=== PATIENT | female | born 1955 | race Caucasian/White ===

== ENCOUNTER 2017-09-24 20:34 | Emergency (ER) | payer MEDICARE, OTHER ==
[2017-09-24] MEDS: SODIUM CHLORIDE 0.9% FLUSH 10 ML SOL IV PRN ×2 (20:45→21:37)
[2017-09-24] MEDS ORDERED: ASPIRIN 81 MG CHEWABLE CTB ONE (20:50)
[2017-09-24] MEDS ORDERED: ASPIRIN 81 MG CHEWABLE CTB PO ONE (21:00)
[2017-09-24 21:04] LABS: HEMATOCRIT 44 % (35-47); HEMOGLOBIN 15.5 gm/dl (12.0-15.5); MEAN CORPUSCULAR HEMOGLOBIN 32.7 pg (27.0-32.0); MEAN CORPUSCULAR HGB CONC 35.6 gm/dl (32.0-36.0); MEAN CORPUSCULAR VOLUME 92 fL (81-99)
[2017-09-24 21:05] LABS: INR 1.05 (0.86-1.12)
[2017-09-24 21:10] LABS: BLOOD UREA NITROGEN 7 mg/dl (7-18); CALCIUM 8.9 mg/dl (8.5-10.1); CARBON DIOXIDE 24.1 mEq/L (21-32); CHLORIDE 97 mMol/L (98-107); CREATINE KINASE 81 U/L (26-192); CREATININE 0.92 mg/dl (0.60-1.00); GLOM FILT RATE 62 mL/min (>60); GLUCOSE 109 mg/dl (74-106); POTASSIUM 3.6 mMol/L (3.5-5.1); SODIUM 132 mMol/L (136-145); TROP I < 0.017 ng/ml (0.000-0.056)
[2017-09-24 21:15] LABS: BAND NEUTROPHILS % (MANUAL) 3 %; BASOPHILS % (MANUAL) 0 % (0-3); EOSINOPHILS % (MANUAL) 2 % (0-9); LYMPHOCYTES % (MANUAL) 25 % (10-50); MONOCYTES % (MANUAL) 12 % (0-12); NEUTROPHILS % (MANUAL) 58 % (37-80)
[2017-09-24 21:16] LABS: NORMAL RBCS PRESENT
[2017-09-24 21:21] VITALS: RESP 24
[2017-09-24] MEDS ORDERED: SOLUMEDROL 125 MG/2 ML 125 MG/2 ML PDS IV ONE (21:29)
[2017-09-24] MEDS ORDERED: KETOROLAC TROMETHAMINE 30 MG/ML SOL IV ONE (21:30)
[2017-09-24] MEDS ORDERED: KETOROLAC TROMETHAMINE 30 MG/ML SOL ONE (21:31)
[2017-09-24] MEDS ORDERED: SOLUMEDROL 125 MG/2 ML 125 MG/2 ML PDS ONE (21:31)
[2017-09-24 21:46] VITALS: BP 142/99; PULSE 75; TEMP 99.1; O2SAT 95
== END 2017-09-24 21:59 | disposition home or self-care (01) | DRG 203 ==
LOC: ED 20:34
DX: J20.9 Acute bronchitis, unspecified (principal); R07.9 Chest pain, unspecified; Z72.0 Tobacco use
CPT/HCPCS: 71046; 80048; 82550; 84484; 85007; 85027; 85610; 85730; 93005; 96374; 96375; 99284; 99285; J1885; J2930

== ENCOUNTER 2018-11-10 19:20 | Emergency (ER) | payer OTHER ==
[2018-11-10 19:41] VITALS: BP 131/77; PULSE 70; RESP 20; TEMP 96.1; O2SAT 97
== END 2018-11-10 19:39 | disposition left against medical advice (07) | DRG 951 ==
LOC: ED 19:20
DX: Z53.21 Procedure and treatment not carried out due to patient leaving prior to being seen by health care provider (principal)
CPT/HCPCS: 99282